=== PATIENT | male | born 1990 | race African-American/Black ===

== ENCOUNTER 2021-08-22 12:49 | Emergency (ER) | payer BC, SELFPAY ==
[2021-08-22] MEDS ORDERED: Boostrix 0.5 ML (Tdap) VIAL ONE (14:49)
== END 2021-08-22 15:01 | disposition home or self-care (01) ==
LOC: ERS 12:49
DX: S61.212A Laceration without foreign body of right middle finger without damage to nail, initial encounter (principal); Z23 Encounter for immunization; W25.XXXA Contact with sharp glass, initial encounter
CPT/HCPCS: 90471; 90715

== ENCOUNTER 2023-12-10 20:38 | Inpatient (IN) | payer BC, SELFPAY ==
[~2023-12-10 20:38] MED LIST: Iopamidol-370 76% 500 ML MDV (1 ML CHARGE) ONE
[2023-12-10 21:05] LABS: #Basophils 0.06 10x3/uL (0.0-0.2); %Basophils 0.9 % (0.0-1.0); %Eosinophils 2.7 % (0.0-10.0); %Lymphocytes 22.4 % (21.0-51.0); %Monocytes 11.3 % (0.0-10.0); %Neutrophils 62.2 % (42.0-75.0); Hematocrit 41.7 % (42.0-52.0); Hemoglobin 14.5 g/dL (14.0-18.0); Mean Corpuscular HGB CONC 34.8 g/dL (32.0-36.0); Mean Corpuscular Hemoglobin 31.2 pg (27.0-31.0); Mean Corpuscular Volume 89.7 fL (78.0-98.0); Mean Platelet Volume 9.7 fL (7.4-10.4); Platelet Count 259 10x3/uL (130-400); RBC Distribution Width 19.6 % (11.5-14.5); Red Blood Cell (RBC) Count 4.65 mill/uL (4.70-6.10)
[2023-12-10 21:22] LABS: ALT (SGPT) 706 U/L (8-55); AST (SGOT) 954 U/L (5-34); Albumin 2.5 g/dL (3.5-5.0); Alkaline Phosphatase 341 U/L (40-110); Anion Gap 12 mmol/L (10-20); BUN (Urea Nitrogen) 8 mg/dL (8.9-20.6); Bilirubin, Total 17.4 mg/dL (0.2-1.2); Calc. Creatinine Clearance 0 mL/min (70-130); Calcium 8.9 mg/dL (7.8-10.44); Carbon Dioxide 27 mmol/L (22-29); Chloride 100 mmol/L (98-107); Estimated GFR 115; Globulin 6.1 g/dL (2.4-3.5); Glucose 117 mg/dL (70-105); Lipase 31 U/L (8-78); Protein, Total 8.6 g/dL (6.0-8.3); Sodium 135 mmol/L (136-145)
[2023-12-10 22:01] LABS: Acetaminophen Less than 10 mcg/mL (Less than 10); Alcohol Less than 10.0 mg/dL (Less than 10); Salicylate Less than 8.0 mg/dL (Less than 8.0)
[2023-12-10 23:46] LABS: Bilirubin 4+ (Negative); Blood, Urine Negative (Negative); CAUTI Indications for Culture Acute Hematuria; Clarity Turbid (Clear); Glucose, Urine (Dipstick) Normal (Negative); Ketone, Urine Negative (Negative); Leukocyte Negative Leu/uL (Negative); Mucous/LPF Rare LPF (<2+); Nitrite Negative (Negative); Protein, Urine (Dipstick) Negative (Neg-Trace); RBC/HPF 0-3 HPF (0-3); Specific Gravity, Urine 1.018 (1.002-1.036); Squamous Epithelial 0-3 HPF (0-3); WBC/HPF 0-3 HPF (0-3)
[2023-12-10 23:48] LABS: Bacteria/HPF Rare-Few HPF (None Seen)
[2023-12-10 23:50] LABS: Urine Culture Reflex No No
[2023-12-10 23:51] LABS: Amphetamine Not Detected (NotDetected); Barbiturates Screen Not Detected (NotDetected); Benzodiazepine Screen Not Detected (NotDetected); Cocaine Metabolite Screen Not Detected (NotDetected); Methadone Not Detected (NotDetected); Methamphetamine Not Detected (NotDetected); Opiate Screen Not Detected (NotDetected); Oxycodone Screen Not Detected (NotDetected); Phencyclidine (PCP) Not Detected (NotDetected); THC/Cannabinoid Screen Not Detected (NotDetected); Tricyclic Screen Not Detected (NotDetected)
[2023-12-11 02:53] LABS: Hepatitis B Core IgM Abs NONREACTIVE S/CO (NonReactive)
[2023-12-11 03:13] LABS: Hep B Core IgM Index 0.11 S/CO (0-0.79)
[2023-12-11 03:27] VITALS: BMI 50.1
[2023-12-11] MEDS ORDERED: Ondansetron PF 4 MG/2 ML Vial IVP PRN (04:09)
[2023-12-11] MEDS: Sodium Chloride 0.9% 1,000 ML IV SCH (04:23)
[2023-12-11 04:43] LABS: HBsAg Index 0.32 S/CO (0-0.99); HIV (1/2) Antibody/Antigen NONREACTIVE (NonReactive); HIV 1/2 INDEX 0.07 S/CO (<1.00); Hep A IgM AB NONREACTIVE (NonReactive); Hep A IgM S/CO 0.21 S/CO (0-0.79); Hep B Surf Ag NONREACTIVE S/CO (NonReactive); Hep C IgG Ab NONREACTIVE S/CO (NonReactive); Hep C Index 0.19 S/CO (0-0.79)
[2023-12-11 06:24] LABS: #Basophils 0.05 10x3/uL (0.0-0.2); %Basophils 0.8 % (0.0-1.0); %Eosinophils 3.5 % (0.0-10.0); %Lymphocytes 24.8 % (21.0-51.0); %Neutrophils 56.4 % (42.0-75.0); Hemoglobin 12.3 g/dL (14.0-18.0); Mean Corpuscular HGB CONC 36.2 g/dL (32.0-36.0); Mean Corpuscular Volume 85.6 fL (78.0-98.0); Mean Platelet Volume 10.5 fL (7.4-10.4); Platelet Count 224 10x3/uL (130-400); RBC Distribution Width 19.4 % (11.5-14.5); Red Blood Cell (RBC) Count 3.97 mill/uL (4.70-6.10)
[2023-12-11 06:30] LABS: ALT (SGPT) 569 U/L (8-55); AST (SGOT) 759 U/L (5-34); Albumin 2.1 g/dL (3.5-5.0); Alkaline Phosphatase 307 U/L (40-110); Anion Gap 10 mmol/L (10-20); BUN (Urea Nitrogen) 9 mg/dL (8.9-20.6); Bilirubin, Total 14.1 mg/dL (0.2-1.2); Calc. Creatinine Clearance 360 mL/min (70-130); Calcium 8.2 mg/dL (7.8-10.44); Carbon Dioxide 24 mmol/L (22-29); Chloride 103 mmol/L (98-107); Estimated GFR 124; Globulin 4.9 g/dL (2.4-3.5); Glucose 87 mg/dL (70-105); INR-International Normal Ratio 1.2; Potassium 3.7 mmol/L (3.5-5.1); Prothrombin Time 14.9 sec (12.0-14.7); Sodium 133 mmol/L (136-145)
[2023-12-11 06:31] LABS: PTT 40.8 sec (22.9-36.1)
[2023-12-11] MEDS ORDERED: FLU (Fluarix Triv) TS24-25(6MOS UP)/PF 45 MCG/0.5 ML Syringe IM ONE (14:00)
[2023-12-11 18:41] LABS: Hemoglobin A1c 4.7 % (4.0-6.0)
[2023-12-11 18:59] LABS: Influenza A by NAA Not Detected (NotDetected); Influenza B by NAA Not Detected (NotDetected); SARS-CoV-2 NAA Rapid Test Not Detected (NotDetected)
[2023-12-12 06:17] LABS: #Basophils 0.03 10x3/uL (0.0-0.2); %Basophils 0.5 % (0.0-1.0); %Eosinophils 2.9 % (0.0-10.0); %Lymphocytes 24.1 % (21.0-51.0); %Monocytes 11.4 % (0.0-10.0); %Neutrophils 60.5 % (42.0-75.0); Hematocrit 34.6 % (42.0-52.0); Hemoglobin 12.2 g/dL (14.0-18.0); Mean Corpuscular HGB CONC 35.3 g/dL (32.0-36.0); Mean Corpuscular Hemoglobin 31.2 pg (27.0-31.0); Mean Corpuscular Volume 88.5 fL (78.0-98.0); Mean Platelet Volume 9.5 fL (7.4-10.4); Platelet Count 209 10x3/uL (130-400); RBC Distribution Width 19.3 % (11.5-14.5); Red Blood Cell (RBC) Count 3.91 mill/uL (4.70-6.10)
[2023-12-12 06:41] LABS: Immunoglob - G (Total IgG) 2925 mg/dL (540-1822); Immunoglob - M (Total IgM) 224 mg/dL (22-240)
[2023-12-12 06:43] LABS: ALT (SGPT) 527 U/L (8-55); AST (SGOT) 743 U/L (5-34); Alkaline Phosphatase 290 U/L (40-110); Bilirubin, Direct 9.9 mg/dL (0.1-0.3); Bilirubin, Total 13.4 mg/dL (0.2-1.2); Cardiac Risk 21.8 (Less than 4.5); Cholesterol 131 mg/dl (< 200 Desired); HDL Cholesterol 6 mg/dL (>60 Neg Risk); LDL Cholesterol, Calculated 92 mg/dL; Protein, Total 6.9 g/dL (6.0-8.3); Triglycerides 166 mg/dL (Less than 150)
[2023-12-12 06:45] LABS: ALT (SGPT) 517 U/L (8-55); AST (SGOT) 725 U/L (5-34); Alkaline Phosphatase 284 U/L (40-110); Anion Gap 10 mmol/L (10-20); BUN (Urea Nitrogen) 9 mg/dL (8.9-20.6); Bilirubin, Total 13.2 mg/dL (0.2-1.2); Calc. Creatinine Clearance 340 mL/min (70-130); Calcium 8.1 mg/dL (7.8-10.44); Carbon Dioxide 23 mmol/L (22-29); Chloride 105 mmol/L (98-107); Estimated GFR 122; Globulin 4.8 g/dL (2.4-3.5); Glucose 84 mg/dL (70-105); Iron 117 ug/dL (65-175); Iron Binding Capacity, Total 265 mcg/dL (261-462); Magnesium 1.8 mg/dL (1.6-2.6); Protein, Total 6.8 g/dL (6.0-8.3); Sodium 134 mmol/L (136-145)
[2023-12-12 06:58] LABS: INR-International Normal Ratio 1.3; Prothrombin Time 15.7 sec (12.0-14.7)
[2023-12-12 07:04] LABS: HIV (1/2) Antibody/Antigen NONREACTIVE (NonReactive); HIV 1/2 INDEX 0.05 S/CO (<1.00)
[2023-12-12 07:19] LABS: MONO NEGATIVE CONTROL ZONE White (Negative) (White); MONO POSITIVE CONTROL Pink Line (Positive) (PINK/RED); Mononucleosis NEGATIVE (NEGATIVE)
[2023-12-12 09:59] LABS: Campy jejuni + coli by PCR Negative (Negative); STEC Shiga Toxin 1+2 Negative (Negative); Salmonella spp. by PCR Negative (Negative); Shigella spp + EIEC by PCR Negative (Negative)
[2023-12-12 11:00] LABS: Syphilis Antibody Nonreactive (Nonreactive)
[2023-12-12 11:54] VITALS: BP 125/73; TEMP 97.6
[2023-12-12 12:21] LABS: ANA Symphony (Qualitative) Negative (Negative); ANA Symphony (Quantitative) 0.6 Ratio (< 0.7 Negative); EliA Vaculitis New Method **** NEW METHOD ****; dsDNA IgG Antibody 8.5 IU/mL (<10 Negative)
[2023-12-14 09:17] LABS: Adenovirus F 40-41 Not Detected (Not Detected); Astrovirus Not Detected (Not Detected); C. difficile toxin A+B Not Detected (Not Detected); Campylobacter by PCR Not Detected (Not Detected); Cryptosporidium Not Detected (Not Detected); Cyclospora cayetanensis Not Detected (Not Detected); Entamoeba histolytica Not Detected (Not Detected); Enteroaggregative E. coli Not Detected (Not Detected); Enteropathogenic E. coli Not Detected (Not Detected); Enterotoxigenic E. coli Not Detected (Not Detected); Giardia lamblia Not Detected (Not Detected); Norovirus GI-GII Not Detected (Not Detected); Plesiomonas shigelloides Not Detected (Not Detected); Rotavirus A Not Detected (Not Detected); Salmonella Not Detected (Not Detected); Sapovirus Not Detected (Not Detected); Shiga-toxin-producing E coli Not Detected (Not Detected); Shigella/Enteroinvasive E coli Not Detected (Not Detected); Vibrio Not Detected (Not Detected); Vibrio cholerae Not Detected (Not Detected); Yersinia enterocolitica Not Detected (Not Detected)
== END 2023-12-12 14:41 | disposition home or self-care (01) | DRG 442 ==
LOC: ERS 20:38 → T4-B 12-11 02:43 → OBSVTOIN 12-11 14:39
PROVIDERS: ADMIT Internal Medicine; ATTEND Family Medicine
DX: K75.9 Inflammatory liver disease, unspecified (principal); E87.1 Hypo-osmolality and hyponatremia; Z68.43 Body mass index [BMI] 50.0-59.9, adult; R73.9 Hyperglycemia, unspecified; R19.7 Diarrhea, unspecified; K80.20 Calculus of gallbladder without cholecystitis without obstruction; E66.9 Obesity, unspecified
CPT/HCPCS: 36415; 74177; 76705; 80053; 80061; 80074; 80306; 80307; 81001; 82103; 82105; 82390; 82550; 83036; 83516; 83540; 83550; 83630; 83690; 83735; 84443; 85025; 85610; 85730; 86015; 86038; 86225; 86308; 86780; 87177; 87324; 87389; 87449; 87505; 87507; 87798; G0378; J7030; Q9967

== ENCOUNTER 2024-01-05 07:30 | Emergency (ER) | payer BC ==
[2024-01-05] MEDS ORDERED: Ketorolac Tromethamine 30 MG (1 mL) VIAL ONE (08:07)
[2024-01-05] MEDS ORDERED: Ondansetron ODT 4 MG TAB ONE (08:07)
[2024-01-05 08:38] LABS: #Basophils 0.04 10x3/uL (0.0-0.2); #Eosinophils Less than 0.03 10x3/uL (0.0-0.7); %Basophils 0.4 % (0.0-1.0); %Eosinophils 0.1 % (0.0-10.0); %Lymphocytes 10.8 % (21.0-51.0); %Monocytes 8.1 % (0.0-10.0); %Neutrophils 80.2 % (42.0-75.0); Hemoglobin 13.3 g/dL (14.0-18.0); Mean Corpuscular HGB CONC 34.1 g/dL (32.0-36.0); Mean Corpuscular Hemoglobin 32.8 pg (27.0-31.0); Mean Corpuscular Volume 96.3 fL (78.0-98.0); Mean Platelet Volume 9.8 fL (7.4-10.4); Platelet Count 229 10x3/uL (130-400); RBC Distribution Width 18.3 % (11.5-14.5); Red Blood Cell (RBC) Count 4.05 mill/uL (4.70-6.10)
[2024-01-05 08:54] LABS: ALT (SGPT) 271 U/L (8-55); AST (SGOT) 282 U/L (5-34); Albumin 2.6 g/dL (3.5-5.0); Alkaline Phosphatase 330 U/L (40-110); Anion Gap 10 mmol/L (10-20); BUN (Urea Nitrogen) 12 mg/dL (8.9-20.6); Bilirubin, Total 6.5 mg/dL (0.2-1.2); Calc. Creatinine Clearance 0 mL/min (70-130); Carbon Dioxide 25 mmol/L (22-29); Chloride 102 mmol/L (98-107); Estimated GFR 121; Globulin 6.2 g/dL (2.4-3.5); Glucose 136 mg/dL (70-105); Lipase 20 U/L (8-78); Potassium 4.2 mmol/L (3.5-5.1); Protein, Total 8.8 g/dL (6.0-8.3); Sodium 133 mmol/L (136-145)
[2024-01-05 11:26] LABS: Bilirubin Moderate (Negative); Blood, Urine Small (Negative); Glucose, Urine (Dipstick) Negative (Negative); Ketone, Urine Negative (Negative); Leukocyte Negative (Negative); Nitrite Negative (Negative); Protein, Urine (Dipstick) Negative (Neg-Trace); Specific Gravity, Urine 1.025 (1.005-1.030)
[2024-01-05 11:41] LABS: CAUTI Indications for Culture Immunosuppressed; Squamous Epithelial 0-3 HPF (0-3)
[2024-01-05 11:48] LABS: Clarity Hazy (Clear)
[2024-01-05 11:55] LABS: Bacteria/HPF Rare-Few HPF (None Seen); Yeast-Budding Rare HPF (None Seen)
[2024-01-05 11:57] LABS: Urine Culture Reflex No No; Urine Culture Reflex Yes Yes
[2024-01-05] MEDS ORDERED: Iopamidol-370 76% 500 ML MDV (1 ML CHARGE) ONE (12:25)
== END 2024-01-05 12:21 | disposition home or self-care (01) ==
LOC: ERS 07:30
DX: R10.13 Epigastric pain (principal); R10.12 Left upper quadrant pain; R10.816 Epigastric abdominal tenderness; R10.812 Left upper quadrant abdominal tenderness; R11.2 Nausea with vomiting, unspecified
CPT/HCPCS: 36415; 74177; 76705; 80053; 81001; 83690; 85025; 87086; 96372; J1885; Q0162

== ENCOUNTER 2024-01-15 06:52 | Emergency (ER) | payer BC ==
[2024-01-15] MEDS ORDERED: Ketorolac Tromethamine 30 MG (1 mL) VIAL ONE (07:21)
[2024-01-15] MEDS ORDERED: Ondansetron ODT 4 MG TAB ONE (07:21)
[2024-01-15] MEDS ORDERED: Lidocaine Viscous Sol 2% 15 ml UD Cup ONE (07:21)
[2024-01-15] MEDS ORDERED: Mag-Al 1200 mg/1200 mg/30 ML UDCUP ONE (07:22)
[2024-01-15 07:30] LABS: #Basophils 0.05 10x3/uL (0.0-0.2); #Eosinophils Less than 0.03 10x3/uL (0.0-0.7); %Basophils 0.7 % (0.0-1.0); %Eosinophils 0.1 % (0.0-10.0); %Lymphocytes 19.7 % (21.0-51.0); %Monocytes 6.9 % (0.0-10.0); %Neutrophils 72.3 % (42.0-75.0); Hematocrit 38.9 % (42.0-52.0); Hemoglobin 13.4 g/dL (14.0-18.0); Mean Corpuscular HGB CONC 34.4 g/dL (32.0-36.0); Mean Corpuscular Volume 98.7 fL (78.0-98.0); Mean Platelet Volume 9.5 fL (7.4-10.4); Platelet Count 237 10x3/uL (130-400); RBC Distribution Width 15.3 % (11.5-14.5); Red Blood Cell (RBC) Count 3.94 mill/uL (4.70-6.10)
[2024-01-15 07:44] LABS: ALT (SGPT) 179 U/L (8-55); AST (SGOT) 199 U/L (5-34); Albumin 2.8 g/dL (3.5-5.0); Alkaline Phosphatase 320 U/L (40-110); Anion Gap 14 mmol/L (10-20); BUN (Urea Nitrogen) 7 mg/dL (8.9-20.6); Bilirubin, Total 4.5 mg/dL (0.2-1.2); Calc. Creatinine Clearance 0 mL/min (70-130); Carbon Dioxide 22 mmol/L (22-29); Chloride 102 mmol/L (98-107); Estimated GFR 119; Globulin 5.6 g/dL (2.4-3.5); Glucose 141 mg/dL (70-105); Lipase 21 U/L (8-78); Potassium 3.8 mmol/L (3.5-5.1); Protein, Total 8.4 g/dL (6.0-8.3); Sodium 134 mmol/L (136-145)
[2024-01-15] MEDS ORDERED: Morphine 4 MG/ML VIAL ONE (09:23)
== END 2024-01-15 09:49 | disposition home or self-care (01) ==
LOC: ERS 06:52
DX: K80.20 Calculus of gallbladder without cholecystitis without obstruction (principal); Z55.6 Problems related to health literacy
CPT/HCPCS: 36415; 76705; 80053; 83690; 85025; 96372; J1885; J2272; Q0162

== ENCOUNTER 2024-01-16 12:09 | Outpatient (CLI) | payer BC ==
[2024-01-16 13:51] LABS: #Basophils 0.04 10x3/uL (0.0-0.2); %Basophils 0.6 % (0.0-1.0); %Lymphocytes 27.3 % (21.0-51.0); %Monocytes 9.7 % (0.0-10.0); %Neutrophils 61.2 % (42.0-75.0); Hematocrit 39.1 % (42.0-52.0); Hemoglobin 12.9 g/dL (14.0-18.0); Mean Corpuscular Hemoglobin 34.2 pg (27.0-31.0); Mean Corpuscular Volume 103.7 fL (78.0-98.0); Mean Platelet Volume 9.9 fL (7.4-10.4); Platelet Count 229 10x3/uL (130-400); RBC Distribution Width 15.5 % (11.5-14.5); Red Blood Cell (RBC) Count 3.77 mill/uL (4.70-6.10)
[2024-01-16 14:07] LABS: ALT (SGPT) 139 U/L (8-55); AST (SGOT) 139 U/L (5-34); Albumin 2.6 g/dL (3.5-5.0); Alkaline Phosphatase 269 U/L (40-110); Anion Gap 11 mmol/L (10-20); BUN (Urea Nitrogen) 8 mg/dL (8.9-20.6); Bilirubin, Direct 2.6 mg/dL (0.1-0.3); Bilirubin, Total 3.9 mg/dL (0.2-1.2); Calc. Creatinine Clearance 0 mL/min (70-130); Calcium 9.1 mg/dL (7.8-10.44); Carbon Dioxide 28 mmol/L (22-29); Chloride 104 mmol/L (98-107); Estimated GFR 108; Glucose 93 mg/dL (70-105); Potassium 3.8 mmol/L (3.5-5.1); Protein, Total 7.6 g/dL (6.0-8.3); Sodium 139 mmol/L (136-145)
== END 2024-01-16 12:10 | disposition home or self-care (01) ==
LOC: LABBT 12:09
PROVIDERS: ATTEND Surgery
DX: Z01.812 Encounter for preprocedural laboratory examination (principal); K80.20 Calculus of gallbladder without cholecystitis without obstruction
CPT/HCPCS: 80053; 80076; 85025

== ENCOUNTER → 2024-01-17 | Day surgery (SDC) | payer BC ==
[2024-01-16 12:40] VITALS: BMI 49.5
[~2024-01-17] MED LIST changes: +Bupivacaine 0.25% HCL 30 ML VIAL ONE; +Dexamethasone 20 MG/5 ML VIAL ONE; +EPINEPHrine 1 MG/ML AMP ONE; +HYDROcodone/Acetaminophen 5/325 mg Tablet ONE; +Indocyanine Green 25 MG/10 ML VIAL ONE; -Iopamidol-370 76% 500 ML MDV (1 ML CHARGE) ONE; +Iopamidol-M 300 61% 15 ML VIAL ONE; +Ketorolac Tromethamine 30 MG (1 mL) VIAL ONE; +Midazolam HCl 2 mg/2 ml Vial ONE; +Ondansetron PF 4 MG/2 ML Vial ONE; +PROPOFOL 200 MG/20 ML VIAL ONE; +Promethazine HCl 25 MG/ML VIAL ONE; +Rocuronium Bromide 10 MG/ML (10ML VIAL) ONE; +SUCCINYLCHOLINE/SOD CL,ISO/PF 200 MG/10 ML SYRINGE FS ONE; +SUGAMMADEX SODIUM 200 MG/2 ML VIAL ONE; +cefOXitin 2 GM VIAL ONE; +fentaNYL 50 mcg/mL 1 mL Vial ONE; +fentaNYL PF 100 MCG/2 ML SYRINGE ONE
== END ==
LOC: SDC 07:55
PROVIDERS: ATTEND Surgery
PROC: 0FB00ZX Excision of Liver, Open Approach, Diagnostic (ICD-10-PCS; principal; 2024-01-17)
PROC: BF03YZZ Plain Radiography of Gallbladder and Bile Ducts using Other Contrast (ICD-10-PCS; principal; 2024-01-17)
PROC: 0FT44ZZ Resection of Gallbladder, Percutaneous Endoscopic Approach (ICD-10-PCS; principal; 2024-01-17)
DX: K80.10 Calculus of gallbladder with chronic cholecystitis without obstruction (principal); K74.60 Unspecified cirrhosis of liver; K83.1 Obstruction of bile duct; R94.5 Abnormal results of liver function studies
CPT/HCPCS: 47532; 88304; 88307; 88313; 88342; C1889; C1894; J0171; J0665; J0694; J1100; J1885; J2250; J2405; J2550; J2704; J3010; Q9967; S2900

== ENCOUNTER 2024-01-23 06:52 | Emergency (ER) | payer BC ==
[2024-01-23] MEDS ORDERED: Ondansetron PF 4 MG/2 ML Vial ONE (07:08)
[2024-01-23 07:32] LABS: #Basophils Less than 0.03 10x3/uL (0.0-0.2); #Eosinophils Less than 0.03 10x3/uL (0.0-0.7); %Basophils 0.3 % (0.0-1.0); %Eosinophils 0.2 % (0.0-10.0); %Lymphocytes 10.1 % (21.0-51.0); %Monocytes 3.8 % (0.0-10.0); %Neutrophils 85.3 % (42.0-75.0); Hematocrit 39.3 % (42.0-52.0); Hemoglobin 13.8 g/dL (14.0-18.0); Mean Corpuscular HGB CONC 35.1 g/dL (32.0-36.0); Mean Corpuscular Hemoglobin 34.4 pg (27.0-31.0); Mean Platelet Volume 9.5 fL (7.4-10.4); Platelet Count 235 10x3/uL (130-400); RBC Distribution Width 13.6 % (11.5-14.5); Red Blood Cell (RBC) Count 4.01 mill/uL (4.70-6.10)
[2024-01-23 07:44] LABS: ALT (SGPT) 98 U/L (8-55); AST (SGOT) 93 U/L (5-34); Albumin 2.9 g/dL (3.5-5.0); Alkaline Phosphatase 258 U/L (40-110); Anion Gap 13 mmol/L (10-20); BUN (Urea Nitrogen) 6 mg/dL (8.9-20.6); Bilirubin, Total 3.1 mg/dL (0.2-1.2); Calc. Creatinine Clearance 0 mL/min (70-130); Calcium 8.7 mg/dL (7.8-10.44); Carbon Dioxide 25 mmol/L (22-29); Chloride 101 mmol/L (98-107); Estimated GFR 117; Globulin 5.1 g/dL (2.4-3.5); Glucose 142 mg/dL (70-105); Lipase 21 U/L (8-78); Potassium 4.1 mmol/L (3.5-5.1); Sodium 135 mmol/L (136-145)
== END 2024-01-23 08:31 | disposition home or self-care (01) ==
LOC: ERS 06:52
DX: R11.2 Nausea with vomiting, unspecified (principal); Z55.6 Problems related to health literacy
CPT/HCPCS: 80053; 83690; 85025; 96374; J2405